=== PATIENT | female | born 1965 | race Caucasian/White ===

== ENCOUNTER 2019-01-18 09:15 | Day surgery (SDC) | payer MEDICAID ==
[~2019-01-18] VITALS: Ht 162.6 cm; Wt 122.5 kg
[2019-01-18] MEDS ORDERED: fentaNYL 0.05 MG/ML VIAL ONE (11:37)
[2019-01-18] MEDS ORDERED: LIDOCAINE 2% 100 MG/5 ML UJET TP ONE (11:38)
[2019-01-18] MEDS ORDERED: fentaNYL 0.05 MG/ML VIAL IVP ONE (12:05)
== END 2019-01-18 13:45 | disposition home or self-care (01) ==
LOC: MDS 09:15 → MTU 09:16 → MDS 13:45
PROVIDERS: ATTEND Internal Medicine Gastroenterology
DX: D64.9 Anemia, unspecified (principal); K57.30 Diverticulosis of large intestine without perforation or abscess without bleeding; K64.8 Other hemorrhoids; E66.01 Morbid (severe) obesity due to excess calories; E11.9 Type 2 diabetes mellitus without complications; Z79.4 Long term (current) use of insulin; Z68.45 Body mass index [BMI] 70 or greater, adult
CPT/HCPCS: 45378; J3010